=== PATIENT | male | born 1995 | race Caucasian/White ===

== ENCOUNTER 2017-06-25 13:25 | Emergency (ER) | payer SELFPAY | END 2017-06-25 14:34 | disposition left against medical advice (07) | LOC: EMS 13:25 | DX: S51.819A Laceration without foreign body of unspecified forearm, initial encounter (principal); X58.XXXA Exposure to other specified factors, initial encounter; Y93.89 Activity, other specified; Y92.89 Other specified places as the place of occurrence of the external cause; Y99.8 Other external cause status; Z53.21 Procedure and treatment not carried out due to patient leaving prior to being seen by health care provider ==